=== PATIENT | male | born 1975 | race Caucasian/White ===

== ENCOUNTER 2022-09-09 16:23 | Outpatient (CLI) | payer OTHER, SELFPAY ==
--- NOTE | ~2022-09-09 | MR_ITS ---
EXAMINATION: MR orbits face neck wo/w con DATE: 09/09/2022 18:21 INDICATION: Carcinoma true vocal cord. TECHNIQUE: Magnetic resonance imaging (MRI) of the neck was performed without and with 19 mL MultiHan ce intravenous contrast. COMPARISON: None. FINDINGS: There is mild mucosal thickening in the paranasal sinuses. There is a 12 mm nodule in left thyroid lobe, likely not clinically significant. There are no pathologically enlarged lymph nodes. Th e bones are unremarkable. IMPRESSION: 1. No evidence of metastatic disease. Reviewed, dictated and finalized at location [facility]. [facility] [employer] [facility] [employer] [facility]
== END 2022-09-09 16:24 | disposition home or self-care (01) ==
PROVIDERS: PCP Internal Medicine
DX: C32.0 Malignant neoplasm of glottis (principal)
CPT/HCPCS: 70543; A9577

== ENCOUNTER 2023-07-11 02:50 | Day surgery (SDC) | payer OTHER, SELFPAY ==
[2023-06-25 13:20] VITALS: BMI 28.4
--- NOTE | 2023-07-09 08:59 | SUR.PREOP ---
Patient called regarding upcoming procedure. Reviewed preop instructions, appointment times, and procedure prep.
--- NOTE | 2023-07-10 09:50 | P.PNAN_ITS ---
Anes - Initial Pre Proc Eval Procedure: Operation Date: 07/11/23 08:30 Proposed Procedures p Screening Colonoscopy - Jose Barbosa MD Date/Time: 07/10/23 09:50 Surgeon: Jose Barbosa MD Pre Op Diagnosis: neoplasm screening Patient Data Age: 48 Gender: M Height: 1.83 m Weight: 95 kg Allergies Allergy/AdvReac Type Severity Reaction Status Date / Time Fish Containing Products Allergy Anaphylaxis Verified 07/11/23 07:27 Home Medications Medication Instructions Recorded Confirmed Type No Home Medications 06/25/23 06/25/23 History Patient hx anesthesia problems: none Family hx anesthesia problems: none Results Review: All pre-operative results and documents have been reviewed as part of the pre- operative evaluation. 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 Family History Family History (Updated 05/27/11 @ 14:55 by DOCTOR UNKNOWN) Grandparent Diabetes mellitus Social History Social History Smoking status: Never smoker Alcohol intake: current Drinks per week: 6 Substance use type: does not use Living arrangements: with family Spiritual care concerns: No Anes - Eval Final PreProcedure Day of Procedure 07/10/23 09:50 Patient weight: overweight Heart: regular rate and rhythm Lungs: clear to auscultation Airway: Mallampati scale class II Neurological: alert and oriented Last oral intake: >/= 8 hours ASA classification: III Emergent: no Anesthetic plan: proceed Anesthesia type and monitoring: general GIVS and standard monitoring Results Review: All pre-operative results and documents have been reviewed as part of the pre- operative evaluation. Informed Consent: The patient's anesthetic plan and its attendant risks and benefits were discussed with the patient/family/POA. Questions were solicited and answers provided to the satisfaction of the patient/family/POA.
[2023-07-11 07:28] VITALS: BP 124/72; PULSE 84; RESP 18; TEMP 36; O2SAT 100; BMI 28.5
[2023-07-11] MEDS: LACTATED RINGERS 1,000 ML 150 ML IV CONT (07:31)
--- NOTE | 2023-07-11 08:19 | PM.HPGS ---
History of Present Illness History of Present Illness Consent: Risks, benefits, and alternatives have been discussed and questions answered. Patient agrees to proceed with procedure. Chief complaint: neoplasm screening Narrative: Mauricio Galicia is a 48 year old male here for first screening colonoscopy Review of Systems Constitutional: Constitutional: Denies headache(s) and Denies weakness Eyes: Eyes: Denies blurry vision ENT: Reports Normal hearing present, Denies headache(s) and Denies neck pain Cardiovascular: Cardiovascular: Denies chest pain and Denies dyspnea Respiratory: Respiratory: Denies dyspnea Gastrointestinal: Gastrointestinal: Reports no additional gastrointestinal complaints Genitourinary: Genitourinary: Denies dysuria Musculoskeletal: Musculoskeletal: Denies neck pain Integumentary/Breasts: Skin/Breast: Denies dry skin Neurologic: Reports Normal hearing present, Denies headache(s) and Denies weakness Psychiatric: Psychiatric: Denies anxiety Endocrine: Endocrine: Denies change in body appearance Hematologic/Lymphatic: Hematologic/Lymphatic: Denies easy bleeding Allergic/Immunologic: Allergic/Immunologic: Denies urticaria PMFSH Past Medical History Medical History (Updated 07/11/23 @ 08:20 by Jose Barbosa MD) Colon cancer screening 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 Family History Family History (Updated 05/27/11 @ 14:55 by DOCTOR UNKNOWN) Grandparent Diabetes mellitus Social History Social History Smoking status: Never smoker Alcohol intake: current Drinks per week: 6 Substance use type: does not use Living arrangements: with family Spiritual care concerns: No Meds Home Medications and Allergies Home Medications Medication Instructions Recorded Confirmed Type No Home Medications 06/25/23 06/25/23 History Allergies Allergy/AdvReac Type Severity Reaction Status Date / Time Fish Containing Products Allergy Anaphylaxis Verified 07/11/23 07:27 Vital Signs Vital Signs - 24 hr 07/11/23 07:28 Temperature 96.8 F L Pulse Rate 84 Respiratory Rate 18 Blood Pressure 124/72 Pulse Oximetry 100 Oxygen Delivery Room Air Exam Const: General: comfortable and no acute distress HENMT: Face/Nose/Sinus: Normal nares present Eyes: General: appearance normal, both eyes and all related structures Neck: Neck: no JVD Resp: Auscultation: clear to auscultation bilaterally Cardio: Rate: regular rate Rhythm: regular rhythm GI: Inspection: non-distended GI Palp: Yes Soft to palpation Skin: General skin exam: normal color Neuro: General: gait normal Speech: normal speech Extrem: General: normal to inspection Psych: Mental Status: mental status grossly normal Assessment and Plan Assessment and plan (1) Colon cancer screening: Code(s): Z12.11 - Encounter for screening for malignant neoplasm of colon Status: Acute Assessment and Plan: colonoscopy
[2023-07-11 08:35] VITALS: BP 102/63; PULSE 56; RESP 18; O2SAT 97
[2023-07-11 08:45] VITALS: BP 100/62; PULSE 55; RESP 16; O2SAT 98
[2023-07-11 08:55] VITALS: BP 120/75; PULSE 55; RESP 18; O2SAT 98
== END 2023-07-11 09:11 | disposition home or self-care (01) ==
PROVIDERS: PCP Internal Medicine; Visit Provider Internal Medicine Gastroenterology
PROC: 0DJD8ZZ Inspection of Lower Intestinal Tract, Via Natural or Artificial Opening Endoscopic (ICD-10-PCS; CPT 45378; principal; 2023-07-11 08:30)
DX: Z12.11 Encounter for screening for malignant neoplasm of colon (principal); K64.8 Other hemorrhoids; Z85.21 Personal history of malignant neoplasm of larynx; Z92.3 Personal history of irradiation
CPT/HCPCS: 45378; J2704; J7120